=== PATIENT | male | born 1990 | race Caucasian/White ===

== ENCOUNTER 2017-06-29 13:14 | Emergency (ER) | payer MEDICAID ==
[2017-06-29 13:38] VITALS: BP 116/83
--- NOTE | 2017-06-29 13:53 | ED Physician Documentation ---
History of Present Illness - Stated complaint Stated Complaint: MALE - Chief complaint Chief Complaint: Wound - History obtained from History obtained from: Patient, Family - History of Present Illness Timing: How many weeks ago (1) Pain level max: 5 Pain level now: 5 Improved by: nothing Worsened by: nothing - Additonal information Additional information: swelling to the L scrotum. Redness. Drained spontaneously today at home. with history of MRSA. No fever. no vomiting. No history of same. Review of Systems Constitutional: denies: Fever, Chills Respiratory: denies: Cough, Wheezing GI: denies: Nausea : denies: Dysuria PD PAST MEDICAL HISTORY - Past Medical History Past Medical History: No - Past Surgical History Past Surgical History: No - Present Medications Home Medications: Ambulatory Orders Medication Instructions Recorded Confirmed Sulfamethox/Trimeth 800/160 1 each PO BID #14 tablet 06/29/17 [Bactrim Ds 800/160] - Allergies Allergies/Adverse Reactions: Allergies Allergy/AdvReac Type Severity Reaction Status Date / Time No Known Drug Allergies Allergy Verified 06/29/17 13:37 - Social History Does the pt smoke?: Yes Smoking Status: Current every day smoker PD ED PE NORMAL - Vitals Vital signs reviewed: Yes - General General: Alert and oriented X 3, No acute distress - HEENT HEENT: Moist mucous membranes - Male Male : Other (L side of scrotum - indurated, swelling, purulent drainage. no fluctuance) - Derm Derm: Warm and dry - Neuro Neuro: Alert and oriented X 3 - Psych Psych: Normal mood, Normal affect Results - Vitals Vitals: Vital Signs - 24 hr 06/29/17 13:35 Temperature 36.1 C L Heart Rate 72 Respiratory 18 Rate Blood Pressure 116/83 H O2 Saturation 98 Oxygen O2 Source Room air - Labs Labs: Microbiology 06/29/17 14:00 Wound Culture - Preliminary Cyst PD MEDICAL DECISION MAKING - ED course Complexity details: considered differential, d/w patient, d/w family ED course: Patient is a 27-year-old male who presents to the emergency department with a spontaneously draining left scrotal abscess. Wound culture obtained. Will place on antibiotics. Will follow closely with his doctor for further evaluation and care. No need for incision at this time. Patient counseled regarding signs and symptoms for which I believe and urgent re-evaluation would be necessary. Patient with good understanding of and agreement to plan and is comfortable going home at this time This document was made in part using voice recognition software. While efforts are made to proofread this document, sound alike and grammatical errors may occur. Departure - Departure Disposition: 01 Home, Self Care Clinical Impression: Abscess Condition: Good Instructions: ED Abscess IandD Follow-Up: MARILU JORGENSEN [Primary Care Provider] - Within 1 week Prescriptions: Sulfamethox/Trimeth 800/160 [Bactrim Ds 800/160] 1 each PO BID #14 tablet Comments: Return if you worsen. Take all antibiotics until gone. Discharge Date/Time: 06/29/17 14:19
[2017-06-29] MEDS ORDERED: SULFAMETH/TRIMETH DS 800/160 MG TABLET PO STA (14:04)
== END 2017-06-29 14:19 | disposition home or self-care (01) ==
LOC: ED 13:14
DX: N49.2 Inflammatory disorders of scrotum (principal); F17.200 Nicotine dependence, unspecified, uncomplicated
CPT/HCPCS: 87070; 87181; 87205; 99283; A9270

== ENCOUNTER 2018-04-25 18:52 | Emergency (ER) | payer MEDICAID ==
[2018-04-25 19:00] VITALS: BP 128/69
[2018-04-25] MEDS ORDERED: KETOROLAC 60 MG/2 ML VIAL IM STA (19:32)
[2018-04-25] MEDS ORDERED: DEXAMETHASONE 10 MG/ML VIAL PO STA (19:32)
--- NOTE | 2018-04-25 19:59 | ED Physician Documentation ---
History of Present Illness - Stated complaint Stated Complaint: BODY PX - Chief complaint Chief Complaint: Back Pain - History obtained from History obtained from: Patient - History of Present Illness Timing: How many weeks ago (several) Pain level max: 10 Pain level now: 10 Improved by: rest Worsened by: movement - Additonal information Additional information: 28-year-old male presents to the emergency department low back pain, right shoulder and right elbow pain. 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 [place] better after a few days off over the holidays, but symptoms returned when he returned to his job. His boss has placed him on light duty starting today. No numbness or tingling. No injury. Was seen in [place] as well for this and given anti-inflammatories, states not better Review of Systems Constitutional: denies: Fever, Chills GI: denies: Vomiting, Diarrhea Skin: denies: Rash Neurologic: denies: Focal weakness, Numbness PD PAST MEDICAL HISTORY - Past Medical History Past Medical History: No - Past Surgical History Past Surgical History: No - Present Medications Home Medications: Ambulatory Orders Medication Instructions Recorded Confirmed Cyclobenzaprine [Flexeril] 10 mg PO TID PRN #20 tablet 04/25/18 Hydrocodone/Acetaminophen 1 - 2 each PO Q6H PRN #10 tablet 04/25/18 [Hydrocodon-Acetaminophen 5-325] Meloxicam [Mobic] 15 mg PO DAILY PRN #20 tablet 04/25/18 - Allergies Allergies/Adverse Reactions: Allergies Allergy/AdvReac Type Severity Reaction Status Date / Time No Known Drug Allergies Allergy Verified 04/25/18 19:00 - Living Situation Living Situation: reports: With family Living Arrangement: reports: At home - Social History Does the pt smoke?: Yes Smoking Status: Current every day smoker Does the pt have substance abuse?: No PD ED PE NORMAL - Vitals Vital signs reviewed: Yes - General General: Alert and oriented X 3, No acute distress - HEENT HEENT: Moist mucous membranes - Neck Neck: Supple, no meningeal sign, No bony TTP - Back Back: No spinal TTP, Other (No midline tenderness to palpation or percussion. No step-off or deformity. There is paraspinal spasm bilaterally across the upper and lower thoracic and lumbar areas) - Derm Derm: Warm and dry - Extremities Extremities: No deformity, Other (Tenderness to palpation about the glenohumeral joint. No bony tenderness. Neurovascularly intact including the axillary nerve also tender over the muscles just proximal to the elbow. No bony tender ness) - Neuro Neuro: Alert and oriented X 3, No motor deficit, No sensory deficit - Psych Psych: Normal mood, Normal affect Results - Vitals Vitals: Vital Signs - 24 hr 04/25/18 18:57 Temperature 36.4 C L Heart Rate 77 Respiratory 20 Rate Blood Pressure 128/69 O2 Saturation 100 Oxygen O2 Source Room air PD MEDICAL DECISION MAKING - ED course Complexity details: reviewed results, re-evaluated patient, considered differential, d/w patient ED course: 28-year-old male who works construction presents with what appears to be musculoskeletal Back and shoulder and elbow pain on the right. Given Toradol here. Will place on anti-inflammatories and muscle relaxants for home. We will give a small amount of hydrocodone for sleep. No neurological deficits. No urinary incontinence. Does not use IV drugs. No midline tenderness. No saddle anesthesia patient counseled regarding signs and symptoms for which I believe and urgent re-evaluation would be necessary. Patient with good understanding of and agreement to plan and is comfortable going home at this time This document was made in part using voice recognition software. While efforts are made to proofread this document, sound alike and grammatical errors may occur. Departure - Departure Disposition: 01 Home, Self Care Clinical Impression: Low back strain Qualifiers: Encounter type: initial encounter Qualified Code(s): S39.012A - Strain of muscle, fascia and tendon of lower back, initial encounter Right shoulder strain Qualifiers: Encounter type: initial encounter Qualified Code(s): S46.911A - Strain of unspecified muscle, fascia and tendon at shoulder and upper arm level, right arm, initial encounter Condition: Good Instructions: ED Sprain Strain Lumbar Follow-Up: [facility] [Provider Group] [facility] [Provider Group] [facility] [Provider Group] Prescriptions: Cyclobenzaprine [Flexeril] 10 mg PO TID PRN #20 tablet PRN Reason: Spasms Hydrocodone/Acetaminophen [Hydrocodon-Acetaminophen 5-325] 1 - 2 each PO Q6H PRN #10 tablet PRN Reason: pain Meloxicam [Mobic] 15 mg PO DAILY PRN #20 tablet PRN Reason: pain Comments: Return if you worsen. It is important you follow-up with your primary care provider for further evaluation. You may benefit from physical or occupational therapy as well. Do not drink alcohol or drive while on narcotic pain medicine. Note that many narcotic pain relievers also contain tylenol/acetaminophen. Please ensure that your total dose of acetaminophen from all sources does not exceed 3 grams (3000mg) per day. You may constipated on this medication, take a stool softener such as "Colace" twice a day while you are on it. Also recommend a [id number] laxative such as senna or MiraLAX any day that you do not have a bowel movement. If you received narcotic pain medication in the emergency department, do not drive or operate machinery for the next 24 hours. Discharge Date/Time: 04/25/18 20:25
== END 2018-04-25 20:25 | disposition home or self-care (01) ==
LOC: ED 18:52
DX: S39.012A Strain of muscle, fascia and tendon of lower back, initial encounter (principal); S46.911A Strain of unspecified muscle, fascia and tendon at shoulder and upper arm level, right arm, initial encounter; X58.XXXA Exposure to other specified factors, initial encounter; Y93.H3 Activity, building and construction; F17.200 Nicotine dependence, unspecified, uncomplicated
CPT/HCPCS: 96372; 99283

== ENCOUNTER 2018-05-11 09:08 | Emergency (ER) | payer MEDICAID ==
[2018-05-11] MEDS ORDERED: NAPROXEN 250 MG TABLET PO STA (09:54)
[2018-05-11] MEDS ORDERED: TRIAMCINOLONE 40 MG/ML VIAL IM STA (09:54)
[2018-05-11] MEDS ORDERED: ACETAMINOPHEN 325 MG TABLET PO STA (09:54)
--- NOTE | 2018-05-11 09:54 | ED Physician Documentation ---
PD HPI BACK PAIN - Stated complaint Stated Complaint: BACK PX - Chief complaint Chief Complaint: Back Pain - History obtained from History obtained from: Patient - History of Present Illness Timing - onset: How many months ago (few) Timing - duration: Months (few) Timing - details: Gradual onset, Still present, Waxing and waning Location: Lower, Left (Along the way he has had pains in the lower back predominantly and mostly to the left. However it does incorporate both sides of the back and upper back as well at times. At one point he was having some numbness in the right arm and shoulder pain but that improved. The consistent pain has been in the lower back. He denies any leg numbness or weakness. He has not had any bowel or bladder problems. 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 He states it still hurts through the weekends even when he has had a couple of days off.) Quality: Pain, Spasm, Aching Associated symptoms: No: Fever, Weakness, Numbness, Incontinent of urine Improves with: Rest, Meds (NSAIDs have helped and he felt moderately better after prior ED visit with meds and steroid (single dose decadron).) Worsened by: Movement, Lifting, Twisting Contributing factors: Lifting (works construction), Twisting Recently seen: Clinic (where he was to get a referral for PT on next visit, he says they did not do much the first visit), Emergency Dept (couple weeks ago) Review of Systems Constitutional: denies: Fever Nose: denies: Rhinorrhea / runny nose, Congestion Throat: denies: Sore throat Respiratory: denies: Cough GI: denies: Abdominal Pain Skin: denies: Rash, Lesions Neurologic: denies: Focal weakness, Numbness PD PAST MEDICAL HISTORY - Past Medical History Past Medical History: No Musculoskeletal: Other (recent back pain for the past few months; no prior problems.) - Past Surgical History Past Surgical History: No - Present Medications Home Medications: Ambulatory Orders Medication Instructions Recorded Confirmed Meloxicam [Mobic] 15 mg PO DAILY PRN #20 tablet 04/25/18 Hydrocodone/Acetaminophen [[place] 1 each PO Q6H PRN #20 tablet 05/11/18 5-325 Tablet] Methocarbamol [Robaxin] 500 mg PO Q6H PRN #30 tablet 05/11/18 Naproxen 500 mg PO BID #60 tablet 05/11/18 - Allergies Allergies/Adverse Reactions: Allergies Allergy/AdvReac Type Severity Reaction Status Date / Time No Known Drug Allergies Allergy Verified 04/25/18 19:00 - Social History Does the pt smoke?: Yes Smoking Status: Current every day smoker Does the pt drink ETOH?: Yes Does the pt have substance abuse?: No - Immunizations Immunizations are current?: No - POLST Patient has POLST: No PD ED PE NORMAL - Vitals Vital signs reviewed: Yes - General General: Alert and oriented X 3, No acute distress, Well developed/nourished - Abdomen Abdomen: Soft, Non tender - Male Male : Deferred - Rectal Rectal: Deferred - Back Back: No CVA TTP, No spinal TTP, Other (tender currently at left upper SI area/iliac crest. No rash nor sores. ) - Derm Derm: Normal color, Warm and dry - Neuro Neuro: Alert and oriented X 3, No motor deficit, No sensory deficit, Normal speech Results - Vitals Vitals: Vital Signs - 24 hr 05/11/18 09:13 Temperature 36.7 C Heart Rate 82 Respiratory 16 Rate Blood Pressure 135/88 H O2 Saturation 100 Oxygen O2 Source Room air PD MEDICAL DECISION MAKING - ED course Complexity details: reviewed old records, considered differential (Discussed with him the initial approach being physical treatments as well as medications in the general thought process and guidelines on delayed imaging and initial emphasis on treatment for back pain like this. He says this had not been explained to them prior previously and he had been wondering why he had not been sent for MRI or such. I will give him up written prescription for physical therapy that he can initiate. When she tried changing out the medications a little bit more and I did a trigger point injection with Kenalog at the upper SI area.), d/w patient Departure - Departure Disposition: 01 Home, Self Care Clinical Impression: Back strain Qualifiers: Encounter type: initial encounter Qualified Code(s): S39.012A - Strain of muscle, fascia and tendon of lower back, initial encounter Condition: Stable Record reviewed to determine appropriate education?: Yes Instructions: ED Back Care Tips, ED Low Back Pain Injury Prescriptions: Hydrocodone/Acetaminophen [[place] 5-325 Tablet] 1 each PO Q6H PRN #20 tablet PRN Reason: Pain Methocarbamol [Robaxin] 500 mg PO Q6H PRN #30 tablet PRN Reason: Spasms Naproxen 500 mg PO BID #60 tablet Comments: We will try switching around the medicines a little bit. This time will use the anti-inflammatory naproxen 500 mg twice daily. See if that gives him more even effect through the day. Also methocarbamol for the muscle relaxant which should be not quite as sedating and so hopefully be able to use it during the day as well. See how you feel with it and use it 2-3 times a day. Heat and gentle stretching for the low back before work and then some stretching and ice for the back after work. Follow-up with physical therapy and/or home care associate for physical treatment of the back as well. Follow up with PMD in about 1-2 weeks, call to set up an appt. Forms: Activity restrictions
[2018-05-11 10:19] VITALS: BP 130/78
== END 2018-05-11 10:19 | disposition home or self-care (01) ==
LOC: ED 09:08
DX: S39.012A Strain of muscle, fascia and tendon of lower back, initial encounter (principal); X50.1XXA Overexertion from prolonged static or awkward postures, initial encounter; X50.0XXA Overexertion from strenuous movement or load, initial encounter; Y92.69 Other specified industrial and construction area as the place of occurrence of the external cause; Y99.0 Civilian activity done for income or pay; F17.200 Nicotine dependence, unspecified, uncomplicated
CPT/HCPCS: 99283; A9270

== ENCOUNTER 2018-09-04 17:42 | Emergency (ER) | payer MEDICAID ==
[2018-09-04 17:51] VITALS: BP 132/97
--- NOTE | 2018-09-04 17:51 | ED Physician Documentation ---
PD HPI HEENT - Stated complaint Stated Complaint: SORE TOOTH - Chief complaint Chief Complaint: Heent - History obtained from History obtained from: Patient - History of Present Illness Timing - onset: How many days ago (2-3) Timing - duration: Days (2-3) Timing - details: Abrupt onset, Still present Location: Tooth (has pain and swelling left lower tooth over just 2-3 days and this morning has swelling notable in lower jaw. No drainage.) Worsens: Swalllowing, Temperatures Associated symptoms: Facial swelling (left jaw area). No: Fever, Congestion, Swollen nodes Similar symptoms before: Diagnosis (has had dental infections in the past. Has been seen at Dental initial visit, with 2nd appt soon, and has insurance approval for partial dentures post extractions.) Recently seen: Not recently seen Review of Systems Constitutional: denies: Fever, Chills Nose: denies: Rhinorrhea / runny nose, Congestion Throat: reports: Dental pain / toothache (with local swelling left lower first molar area). denies: Sore throat Respiratory: denies: Cough PD PAST MEDICAL HISTORY - Past Medical History Cardiovascular: None Respiratory: None Neuro: None Endocrine/Autoimmune: None Musculoskeletal: Other (recent back pain for the past few months; no prior problems.) - Past Surgical History Past Surgical History: No - Present Medications Home Medications: Ambulatory Orders Medication Instructions Recorded Confirmed Chlorhexidine Gluconate [Peridex] 10 ml MM TID #118 mouthwash 09/04/18 Clindamycin HCl [Clindamycin 300MG 300 mg PO TID #21 capsule 09/04/18 CAP] Hydrocodone/Acetaminophen [[place] 1 each PO Q6H PRN #15 tablet 09/04/18 5-325 Tablet] - Allergies Allergies/Adverse Reactions: Allergies Allergy/AdvReac Type Severity Reaction Status Date / Time No Known Drug Allergies Allergy Verified 09/04/18 17:50 - Social History Does the pt smoke?: Yes Smoking Status: Current every day smoker Does the pt drink ETOH?: Yes Does the pt have substance abuse?: No - Immunizations Immunizations are current?: No - POLST Patient has POLST: No PD ED PE NORMAL - Vitals Vital signs reviewed: Yes - General General: Alert and oriented X 3, No acute distress, Well developed/nourished - HEENT HEENT: Other (mild visible swelling left mandible area. No redness nor warmth of skin. ). No: Dentition benign (severe caries diffusely. There is swelling of gum without fluctuance at left lower first molar area. The tooth itself is decayed to gumline. ) - Neck Neck: Supple, no meningeal sign, No adenopathy - Cardiac Cardiac: RRR, No murmur - Respiratory Respiratory: Clear bilaterally Results - Vitals Vitals: Vital Signs - 24 hr 09/04/18 17:49 Temperature 36.9 C Heart Rate 60 Respiratory 20 Rate Blood Pressure 132/97 H O2 Saturation 100 Oxygen O2 Source Room air PD MEDICAL DECISION MAKING - ED course Complexity details: considered differential (has been making appt with Dental, has had initial appt and has 2nd appt scheduled, with approval from insurance for partial denture after extractions. He is making effort to address teeth issue. ), d/w patient Departure - Departure Disposition: Home, Self Care Clinical Impression: Dental infection Condition: Stable Record reviewed to determine appropriate education?: Yes Instructions: ED Abscess Dental Prescriptions: Chlorhexidine Gluconate [Peridex] 10 ml MM TID #118 mouthwash Clindamycin HCl [Clindamycin 300MG CAP] 300 mg PO TID #21 capsule Hydrocodone/Acetaminophen [[place] 5-325 Tablet] 1 each PO Q6H PRN #15 tablet PRN Reason: Pain Comments: Use the chlorhexidine antiseptic mouthwash 2 or 3 times a day. Use ibuprofen or naproxen twice daily for inflammation and add Tylenol or hydrocodone if needed for pain. Clindamycin oral antibiotic as directed for a week. Follow-up with dental as planned or ultimately more definitive care of the teeth and gums. Discharge Date/Time: 09/04/18 18:50
[2018-09-04] MEDS ORDERED: CLINDAMYCIN 150 MG CAPSULE PO STA (18:24)
[2018-09-04] MEDS ORDERED: ACETAMINOPHEN 325 MG TABLET PO STA (18:25)
== END 2018-09-04 18:50 | disposition home or self-care (01) ==
LOC: ED 17:42
DX: K04.7 Periapical abscess without sinus (principal); F17.200 Nicotine dependence, unspecified, uncomplicated
CPT/HCPCS: 99283; A9270

== ENCOUNTER 2018-09-17 16:16 | Emergency (ER) | payer MEDICAID ==
[2018-09-17 16:20] VITALS: BP 133/83
--- NOTE | 2018-09-17 16:38 | ED Physician Documentation ---
PD HPI HEENT - Stated complaint Stated Complaint: MOUTH PAIN - Chief complaint Chief Complaint: Heent - History obtained from History obtained from: Patient - History of Present Illness Timing - onset: How many days ago (5) Timing - duration: Days (5) Timing - details: Gradual onset, Still present Location: Tooth Improves: Medication Associated symptoms: Facial swelling Similar symptoms before: Diagnosis (tooth abscess) Recently seen: Emergency Dept - Additional information Additional information: 28-year-old male with a mouthful of bad teeth has a bad tooth in the left lower premolar and he has been put on some clindamycin about 2 weeks ago he took this had some improvement in 2 to 3 days and then slowly the pain began to come back. He has been off of his antibiotic now and pain is worsening. Review of Systems Constitutional: denies: Fever Eyes: denies: Decreased vision Ears: denies: Ear pain Nose: denies: Rhinorrhea / runny nose Throat: reports: Dental pain / toothache Cardiac: denies: Chest pain / pressure, Palpitations Respiratory: denies: Dyspnea, Cough GI: denies: Abdominal Pain, Nausea, Vomiting : denies: Dysuria PD PAST MEDICAL HISTORY - Past Medical History Cardiovascular: None Respiratory: None Neuro: None Endocrine/Autoimmune: None Musculoskeletal: Other (recent back pain for the past few months; no prior problems.) - Past Surgical History Past Surgical History: No - Present Medications Home Medications: Ambulatory Orders Medication Instructions Recorded Confirmed Chlorhexidine Gluconate [Peridex] 10 ml MM TID #118 mouthwash 09/04/18 Clindamycin HCl [Clindamycin 300MG 300 mg PO TID #21 capsule 09/04/18 CAP] Hydrocodone/Acetaminophen [[place] 1 each PO Q6H PRN #15 tablet 09/04/18 5-325 Tablet] Amoxicillin 875 mg PO BID #14 tablet 09/17/18 Hydrocodone/Acetaminophen 1 - 2 each PO Q6H PRN #14 tablet 09/17/18 [Hydrocodon-Acetaminophen 5-325] - Allergies Allergies/Adverse Reactions: Allergies Allergy/AdvReac Type Severity Reaction Status Date / Time No Known Drug Allergies Allergy Verified 09/17/18 16:20 - Social History Does the pt smoke?: Yes Smoking Status: Current every day smoker Does the pt drink ETOH?: Yes Does the pt have substance abuse?: No - Immunizations Immunizations are current?: No - POLST Patient has POLST: No PD ED PE NORMAL - Vitals Vital signs reviewed: Yes (hypertensive ) - General General: No acute distress, Well developed/nourished - HEENT HEENT: Atraumatic, PERRL, EOMI, Other (There is tenderness to the gingival mucousa over the left lower pre-molar. There is no fluctuance to the gingnival/buccal fold. The tooth is broken at the base and there are multiple broken teeth. 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, No motor deficit, No sensory deficit, Normal speech Eye Opening: Spontaneous Motor: Obeys Commands Verbal: Oriented GCS Score: 15 - Psych Psych: Normal mood, Normal affect Results - Vitals Vitals: Vital Signs - 24 hr 09/17/18 16:18 Temperature 36.6 C Heart Rate 62 Respiratory 17 Rate Blood Pressure 133/83 H O2 Saturation 98 Oxygen O2 Source Room air PD MEDICAL DECISION MAKING - ED course Complexity details: considered differential, d/w patient ED course: 28-year-old male with a toothache in the left lower premolar has been on a course of clindamycin with rapid return of symptoms we will place him on some amoxicillin this time and will provide him with some more pain medication. Departure - Departure Disposition: 01 Home, Self Care Clinical Impression: Dental infection Condition: Stable Instructions: ED Abscess Dental Follow-Up: [facility] [Provider Group] Prescriptions: Amoxicillin 875 mg PO BID #14 tablet Hydrocodone/Acetaminophen [Hydrocodon-Acetaminophen 5-325] 1 - 2 each PO Q6H PRN #14 tablet PRN Reason: pain
== END 2018-09-17 16:43 | disposition home or self-care (01) ==
LOC: ED 16:16
DX: K04.7 Periapical abscess without sinus (principal); F17.200 Nicotine dependence, unspecified, uncomplicated
CPT/HCPCS: 99283